=== PATIENT | female | born 1940 | race Caucasian/White ===

== ENCOUNTER → 2022-06-02 09:57 | Outpatient (CLI) | payer MEDICARE, OTHER, SELFPAY ==
--- NOTE | 2022-06-02 09:58 | DI.ECHO.S_ITS ---
[facility] +---------+ : : [address] : : : : [id number] : : : : Phone: [phone]+ Echocardiogram Report + + :Name: CHARITO HERRERA V Study Date: 06/02/2022 Height: 61 in : :[facility] ReadingLocation: Weight: 144 lb : : Gender: Female BSA: 1.6 m2 : :: 1940 Age: 81 yrs BP: 162/94 mmHg: :Reason For Study: Hypertension : :Ordering Physician: MAGALY, : :RESHMA Performed By: Jordon Munoz : :Referring: RESHMA MCKENZIE : + + Interpretation Summary The ejection fraction is estimated to be 55-60%. There are no focal wall motion abnormalities. There is mild mitral regurgitation. There is mild aortic valve sclerosis. There is mild tricuspid regurgitation. The right ventricular systolic pressure is estimated to be at least 24 mmHg based on an estimated right atrial pressure of 3 mm Hg. Procedure: A two-dimensional transthoracic echocardiogram with color flow and Doppler was performed. The study quality was technically adequate. There is no prior echocardiogram noted for this patient. The patient was in normal sinus rhythm during the exam. Left Ventricle: The left ventricle is normal in size and wall thickness. Left ventricular systolic function is normal. The ejection fraction is estimated to be 55-60%. There are no focal wall motion abnormalities. Diastolic parameters suggest probable normal left ventricular diastolic function and normal filling pressures. Right Ventricle: The right ventricle is normal in size and function. Atria: Both atria are normal in size. The interatrial septum grossly appears intact with no obvious evidence for an atrial septal defect. Mitral Valve: There is mild to moderate mitral annular calcification. There is mild mitral regurgitation. Aortic Valve: There is mild aortic valve sclerosis. No aortic regurgitation is present. Tricuspid Valve: The tricuspid valve is normal in structure and function. There is mild tricuspid regurgitation. The right ventricular systolic pressure is estimated to be at least 24 mmHg based on an estimated right atrial pressure of 3 mm Hg. Pulmonic Valve: The pulmonic valve is normal in structure and function. There is mild pulmonic regurgitation. Great Vessels: The aortic root is normal size. The ascending aorta is mildly enlarged. The IVC is of normal diameter and collapses greater than 50% with a sniff. This suggests a low right atrial pressure of 3 mm Hg. Pericardium/ Pleura There is no pericardial effusion. There is no pleural effusion. MMode/2D Measurements & Calculations LVIDd: 4.2 cm LVOT diam: 2.0 cm LVIDs: 2.9 cm Ao root diam: 3.0 cm FS: 31.0 % asc Aorta Diam: 3.8 cm IVSd: 0.60 cm LVPWd: 0.80 cm LV kimball. diameter/BSA (cm/m^2): 2.6 LV sys. diameter/BSA (cm/m^2): 1.8 LA dimension: 3.2 cm RA long axis: 4.7 cm LA A2 area: 8.9 cm2 RA area: 8.7 cm2 LA A4 area: 12.9 cm2 RA vol: 13.9 ml LA length (vol): 4.1 cm RA : 8.5 ml/m2 LA vol: 23.7 ml LA vol index: 14.4 ml/m2 TAPSE_phl: 1.8 cm Doppler Measurements & Calculations Ao V2 max: 102.0 cm/sec LVOT Max Griffin: 101.0 cm/sec Ao V2 mean: 82.3 cm/sec LV V1 max P.1 mmHg Ao max P.0 mmHg LV V1 VTI: 21.5 cm Ao mean P.0 mmHg JAS(I,D): 2.8 cm2 Ao V2 VTI: 24.1 cm JAS(V,D): 3.1 cm2 sev ratio: 0.89 JAS indexed to BSA (cm^2/m^2): 1.7 MV E max griffin: 86.5 cm/sec TR max griffin: 229.0 cm/sec MV A max griffin: 126.0 cm/sec TR max P.0 mmHg MV E/A: 0.69 Med Peak E' Griffin: 5.0 cm/sec E/E' med: 17.2 Lat Peak E' Griffin: 8.3 cm/sec E/E' lat: 10.4 E/e' average: 13.8 MV dec time: 0.22 sec SV(LVOT): 67.5 ml AV VR_phl: 0.99 MV P1/2t-pr_phl: 65.0 msec Reading Physician:03:39 PM
== END ==
PROVIDERS: Family Provider Internal Medicine; PCP Nurse Practitioner; Referring Provider Nurse Practitioner; Visit Provider Nurse Practitioner
DX: I65.22 Occlusion and stenosis of left carotid artery (principal); I08.3 Combined rheumatic disorders of mitral, aortic and tricuspid valves; I77.89 Other specified disorders of arteries and arterioles; I10 Essential (primary) hypertension; E11.69 Type 2 diabetes mellitus with other specified complication; E78.5 Hyperlipidemia, unspecified
CPT/HCPCS: 93005; 93010; 93306

== ENCOUNTER → 2022-10-07 08:00 | Outpatient (CLI) | payer MEDICARE, OTHER, SELFPAY ==
--- NOTE | 2022-10-07 08:03 | DI.US.S_ITS ---
PROCEDURE: US PELVIC COMPLETE INDICATIONS: vaginal bleed TECHNIQUE: Real-time scanning was performed of the pelvic organs, with image documentation. Additional endovaginal scanning was necessary due to incomplete visualization of the adnexal and endometrial structures by transabdominal scanning. COMPARISON: None. FINDINGS: Uterus: Uterus is anteverted and normal in size at 4.4 x 3.4 x 2.2 cm. The myometrium is heterogeneous with foci of calcification. The endometrium measures 2.9 mm combined thickness. There is a trace of endometrial fluid. Ovaries: Not visualized. Other: No pathologic free abdominal or pelvic fluid. There is a 2.0 x 2.5 x 1.4 cm oval-shaped structure with central lucency anterior superior to uterus. IMPRESSION: 1. Atrophic uterus. There is a trace of endometrial fluid. In the postmenopausal woman, this finding is abnormal. Recommend gynecological consultation. 2. Ovaries are not visualized. 3. A 2.0 x 2.5 x 1.4 cm oval-shaped structure with central lucency anterior superior to uterus. There is no vascularity on Doppler ultrasound. The clinical significance of the finding is uncertain. If clinically indicated, pelvic CT would be helpful. We strive to produce accurate, complete, and clear reports of imaging services. To assist us in improving patient care, this report was composed using standard report templates and voice recognition software. Therefore, it may contain abnormal punctuation, insertions and/or omissions. Occasional wrong-word or sound-alike substitutions may occur. Though we review the report and make efforts to correct it, we do recommend that the report be read carefully in proper context to recognize any text inaccuracies. Dictated by: Anupama Nieves M.D. on 10/07/2022 at 10:49 Approved by: Anupama Nieves M.D. on 10/07/2022 at 10:57
[2022-10-07 09:16] LABS: Hematocrit 35.2 % (36-46); Hemoglobin 12.1 g/dL (12.0-16.0); Mean Corpuscular HGB Conc 34.4 % (30-36); Mean Corpuscular Hemoglobin 31.8 PG (26-34); Mean Corpuscular Volume 92.4 fL (80-100); Platelet Count 217 X10^3/uL (150-400); Red Blood Cell Count 3.81 X10^6/uL (4.0-5.2); Red Cell Distribution Width 12.9 % (11.6-14.8); White Blood Cell Count 6.1 X10^3/uL (4.5-11.0)
[2022-10-07 09:17] LABS: Hemoglobin A1C% w Est Avg Glu 6.5 % (4.0-6.0)
[2022-10-07 09:42] LABS: Alanine Aminotransferase 17 IU/L (<35); Albumin 3.8 g/dL (3.5-5.0); Albumin Globulin Ratio 1.4 (1.0-2.8); Alkaline Phosphatase 75 U/L (38-126); Aspartate Aminotransferase 25 IU/L (14-36); BUN Creatinine Ratio 11.4 (6-22); Bilirubin Total 0.4 mg/dL (0.2-1.3); Blood Urea Nitrogen 12 mg/dL (7-17); Calcium 9.6 mg/dL (8.4-10.2); Carbon Dioxide 29 mmol/L (22-32); Chloride 103 mmol/L (98-107); Cholesterol 149 mg/dL (140-199); Estimated Glomerular Filt Rate 54 mL/min (>60); Globulin 2.8 g/dL (1.7-4.1); Glucose 123 mg/dL (80-110); HDL Cholesterol 77 mg/dL (40-60); HEMOLYSIS < 15 (0-50); LDL Cholesterol Calculated 53 mg/dL (<100); Sodium 140 mmol/L (137-145); Total Protein 6.6 g/dL (6.3-8.2); Triglycerides 94 mg/dL (35-150)
[2022-10-07 09:43] LABS: Potassium 6.1 mmol/L (3.4-5.1)
[2022-10-07 18:16] LABS: Magnesium 1.3 mg/dL (1.6-2.3)
== END ==
PROVIDERS: Family Provider Internal Medicine; PCP Nurse Practitioner; Referring Provider Nurse Practitioner Family; Visit Provider Nurse Practitioner Family
DX: N93.9 Abnormal uterine and vaginal bleeding, unspecified (principal); N85.8 Other specified noninflammatory disorders of uterus; R10.2 Pelvic and perineal pain; E11.69 Type 2 diabetes mellitus with other specified complication; E78.2 Mixed hyperlipidemia; I10 Essential (primary) hypertension; D64.9 Anemia, unspecified; E87.5 Hyperkalemia; Z79.899 Other long term (current) drug therapy
CPT/HCPCS: 36415; 76830; 76856; 80053; 80061; 83036; 83735; 85027

== ENCOUNTER → 2022-10-20 08:13 | Outpatient (CLI) | payer MEDICARE, OTHER, SELFPAY ==
--- NOTE | 2022-10-20 08:14 | DI.CT.S_ITS ---
PROCEDURE: CT ABDOMEN PELVIS W CON INDICATIONS: ABNORMAL US R/O MALIGNANCY TECHNIQUE: After the administration of oral and intravenous contrast, axial sections were acquired from the lung bases to the pubic symphysis. Coronal and sagittal reformats were performed. For radiation dose reduction, the following was used: automated exposure control, adjustment of mA and/or kV according to patient size. COMPARISON:[facility], US, US PELVIC COMPLETE, 10/07/2022, 8:12. FINDINGS: Image quality: Excellent. Lung bases: Unremarkable. Heart: No significant findings. ABDOMEN: Liver: Unremarkable. Gallbladder: Patient is status post cholecystectomy. Biliary ducts: Unremarkable. Pancreas: Unremarkable. Spleen: Unremarkable. Adrenal Glands: Unremarkable. Kidneys and Ureters: Unremarkable. Stomach and Bowel: Stomach, small bowel loops, and colon are unremarkable other than some increased stool noted throughout the patient's colon. There is a small to moderate size hiatal hernia present. The appendix is visualized and appears normal. Peritoneum: No abnormal intraperitoneal fluid. No free air. Ventral Wall: No hernia. Abdominal Nodes: No retroperitoneal or mesenteric adenopathy by size criteria. Vessels: Aorta and inferior vena cava are normal in size. PELVIS: Pelvic Organs: There is a thickened endometrium at 1.7 centimeters. I do not see evidence for a focal mass lesion in the pelvis. Bladder: Unremarkable. Pelvic Nodes: No enlarged lymph nodes. Miscellaneous: No inguinal hernias are seen. Bones: Patient is status post right total hip prosthesis which does somewhat technically limit evaluation of the pelvis secondary to metallic streak artifact. IMPRESSION: 1. Thickened endometrium at 1.7 centimeters. 2. No focal mass lesion identified within the pelvis. 3. Status post right total hip prosthesis. 4. Moderate increased stool throughout the patient's colon. 5. Atherosclerotic calcifications. 6. Small to moderate size hiatal hernia. 7. Status post cholecystectomy. 8. No evidence for acute intra-abdominal process seen. Dictated by: Obinna Oneal M.D. on 10/20/2022 at 12:56 Approved by: Obinna Oneal M.D. on 10/20/2022 at 13:08
== END ==
PROVIDERS: Family Provider Internal Medicine; PCP Nurse Practitioner; Referring Provider Nurse Practitioner; Visit Provider Nurse Practitioner
DX: R93.89 Abnormal findings on diagnostic imaging of other specified body structures (principal); K44.9 Diaphragmatic hernia without obstruction or gangrene; R10.9 Unspecified abdominal pain; Z90.49 Acquired absence of other specified parts of digestive tract; Z96.641 Presence of right artificial hip joint
CPT/HCPCS: 74177; Q9967

== ENCOUNTER → 2023-04-11 16:05 | Outpatient (CLI) | payer MEDICARE, OTHER, SELFPAY ==
[2023-04-11 18:40] LABS: Appearance Urine UA CLEAR; Bilirubin Urine UA NEGATIVE (NEGATIVE); Color Urine UA YELLOW; Glucose Urine UA NEGATIVE (Negative); Ketones Urine UA TRACE (NEGATIVE); Leukocyte Esterase Urine UA NEGATIVE (NEGATIVE); Nitrite Urine UA NEGATIVE (Negative); Occult Blood Urine UA NEGATIVE (Negative); Protein Urine UA TRACE (Negative); Specific Gravity Urine UA 1.025 (1.000-1.035); Urobilinogen Urine UA 0.2 E.U./dL (0.2)
[2023-04-11 18:44] LABS: Bacteria Urine None Seen; Culture Indicated Urine Cult Not Indicated; RBC Urine None Seen (0-5/HPF); Squamous Epithelial Cell Urine None Seen (0-5/HPF); Urine Comments Microscopic Normal; WBC Urine None Seen (0-5/HPF)
== END ==
PROVIDERS: Family Provider Internal Medicine; PCP Nurse Practitioner; Visit Provider Family Medicine
DX: N18.9 Chronic kidney disease, unspecified (principal)
CPT/HCPCS: 81001

== ENCOUNTER → 2023-08-14 10:49 | Outpatient (CLI) | payer MEDICARE, OTHER, SELFPAY ==
[2023-08-14 12:11] LABS: Urine Volume 10mL (spun)
[2023-08-14 12:41] LABS: Hematocrit 36.3 % (36-46); Mean Corpuscular HGB Conc 33.2 % (30-36); Mean Corpuscular Hemoglobin 30.5 PG (26-34); Mean Corpuscular Volume 91.9 fL (80-100); Platelet Count 260 X10^3/uL (150-400); Red Blood Cell Count 3.95 X10^6/uL (4.0-5.2); Red Cell Distribution Width 12.9 % (11.6-14.8); White Blood Cell Count 5.5 X10^3/uL (4.5-11.0)
[2023-08-14 13:13] LABS: Appearance Urine UA CLEAR; Bilirubin Urine UA NEGATIVE (NEGATIVE); Color Urine UA YELLOW; Glucose Urine UA NEGATIVE (Negative); Ketones Urine UA NEGATIVE (NEGATIVE); Leukocyte Esterase Urine UA NEGATIVE (NEGATIVE); Nitrite Urine UA NEGATIVE (Negative); Occult Blood Urine UA NEGATIVE (Negative); Protein Urine UA NEGATIVE (Negative); Urobilinogen Urine UA 0.2 E.U./dL (0.2)
[2023-08-14 13:21] LABS: Bacteria Urine None Seen; Culture Indicated Urine Cult Not Indicated; Hyaline Casts Urine 1-5/LPF; RBC Urine None Seen (0-5/HPF); Squamous Epithelial Cell Urine 0-1 /HPF (0-5/HPF); WBC Urine None Seen (0-5/HPF)
[2023-08-14 13:33] LABS: Alanine Aminotransferase 15 IU/L (<35); Albumin 4.3 g/dL (3.5-5.0); Albumin Globulin Ratio 1.3 (1.0-2.8); Alkaline Phosphatase 87 U/L (38-126); Aspartate Aminotransferase 24 IU/L (14-36); Bilirubin Total 0.5 mg/dL (0.2-1.3); Blood Urea Nitrogen 12 mg/dL (7-17); Calcium 9.9 mg/dL (8.4-10.2); Carbon Dioxide 26 mmol/L (22-32); Chloride 104 mmol/L (98-107); Cholesterol 219 mg/dL (140-199); Estimated Glomerular Filt Rate 51 mL/min (>60); Globulin 3.3 g/dL (1.7-4.1); Glucose 127 mg/dL (80-110); HDL Cholesterol 65 mg/dL (40-60); HEMOLYSIS < 15 (0-50); LDL Cholesterol Calculated 137 mg/dL (<100); Potassium 4.3 mmol/L (3.4-5.1); Sodium 140 mmol/L (137-145); Total Protein 7.6 g/dL (6.3-8.2); Triglycerides 83 mg/dL (35-150)
[2023-08-14 13:47] LABS: TSH w/ Reflex to FT4 1.53 uIU/mL (0.47-4.68)
[2023-08-14 14:07] LABS: Ferritin 29 ng/mL (11-264)
[2023-08-14 14:22] LABS: Vitamin B12 528 pg/mL (239-931)
[2023-08-14 14:40] LABS: Creatinine Urine Random 147.5 mg/dL
[2023-08-14 14:44] LABS: Microalbumi Creatinin Ratio Ur 26.4 ug/mg CR (<30); Microalbumin Urine Random 3.9 mg/dL (0-1.6)
[2023-08-14 14:48] LABS: Hemoglobin A1C% w Est Avg Glu 6.6 % (4.0-6.0)
== END ==
PROVIDERS: Family Provider Internal Medicine; PCP Internal Medicine; Referring Provider Internal Medicine; Visit Provider Internal Medicine
DX: E11.319 Type 2 diabetes mellitus with unspecified diabetic retinopathy without macular edema (principal); E78.2 Mixed hyperlipidemia; D64.9 Anemia, unspecified; E11.21 Type 2 diabetes mellitus with diabetic nephropathy; E53.8 Deficiency of other specified B group vitamins; N30.00 Acute cystitis without hematuria
CPT/HCPCS: 36415; 80053; 80061; 81001; 82043; 82570; 82607; 82728; 83036; 84443; 85027

== ENCOUNTER → 2023-08-29 11:39 | Outpatient (CLI) | payer MEDICARE, OTHER, SELFPAY ==
--- NOTE | 2023-08-29 11:59 | DI.DEXA.S_ITS ---
Bone Density Report Name: CHARITO HERRERA V Age: 82 Sex: Female Ethnicity: White Date of : 1940 Indication: postmenopausal; screening for osteoporosis; Referring Provider: EMELY LAM Study: Bone densitometry was performed. Exam Date: August 29, 2023 Accession number: [id number] Bone Density: Region BMD T-score Z-score Classification AP Spine(L2, L3) 1.190 1.2 4.0 Normal Femoral Neck (Left) 0.450 -3.6 -1.2 Osteoporosis Total Hip (Left) 0.698 -2.0 0.2 Osteopenia Total Forearm (Left) 0.505 -1.4 1.8 Osteopenia 1/3 Forearm (Left) 0.607 -1.4 1.9 Osteopenia UD Forearm (Left) 0.477 0.6 3.0 Normal World Health Organization criteria for BMD impression classify patients as: Normal (T-score at or above -1.0), Osteopenia (T-score between -1.0 and -2.5), or Osteoporosis (T-score at or below -2.5). 10-year Fracture Risk: FRAX not reported because: Some T-score for Spine Total or Hip Total or Femoral Neck at or below -2.5 Impression: The patient has osteoporosis, based on the Left Femoral Neck T-score. Discussion: INCREASED RISK OF FRACTURE. BONE DENSITY IS UNDESIRABLY LOW AT ONE OR MORE SKELETAL SITES, CONSISTENT WITH POSTMENOPAUSAL OSTEOPOROSIS. This patient's lowest T-score meets the World Health Organization's (WHO) criteria for osteoporosis at one or more sites (T-score -2.5 or below). In untreated patients, the risk of osteoporotic fracture increases approximately two-fold for each 1.0 SD decrease in T-score. Low bone density is not the only risk factor for fracture; also consider factors such as patient's age, frailty or poor health, risk of falling, risk of injury, previous osteoporotic fracture, family history of osteoporosis, cigarette smoking, low body weight, etc. Not everyone with low bone mineral density has osteoporosis; osteomalacia and other metabolic bone disorders should also be considered. Patients who have osteoporosis should be evaluated for specific diseases and conditions (secondary causes) that may cause or contribute to bone loss. The [place] [employer]ocrinologists (AACE) and National Osteoporosis Foundation (NOF) recommend pharmacologic intervention for all postmenopausal women whose T-score is in this range. The patient should follow a healthful lifestyle (good nutrition with adequate calcium and vitamin D, and appropriate weight-bearing exercise). Follow-Up: Consider a repeat BMD and Vertebral Fracture Assessment (VFA) exam in 2 years or sooner if medically necessary, to reassess this patient's status. Reported by: DAVID QUINTERO M.D. on 08/29/2023 12:18:00 PM.
== END ==
LOC: RAD 11:39
PROVIDERS: Family Provider Internal Medicine; PCP Internal Medicine; Referring Provider Internal Medicine; Visit Provider Internal Medicine
DX: M81.0 Age-related osteoporosis without current pathological fracture (principal)
CPT/HCPCS: 77080; 77081

== ENCOUNTER → 2023-11-08 15:24 | Outpatient (CLI) | payer MEDICARE, OTHER, SELFPAY ==
[2023-11-08 16:36] LABS: Appearance Urine UA CLEAR; Bilirubin Urine UA NEGATIVE (NEGATIVE); Color Urine UA YELLOW; Glucose Urine UA NEGATIVE (Negative); Ketones Urine UA NEGATIVE (NEGATIVE); Leukocyte Esterase Urine UA NEGATIVE (NEGATIVE); Nitrite Urine UA NEGATIVE (Negative); Occult Blood Urine UA NEGATIVE (Negative); Protein Urine UA NEGATIVE (Negative); Specific Gravity Urine UA 1.025 (1.000-1.035); Urobilinogen Urine UA 0.2 E.U./dL (0.2)
[2023-11-08 16:52] LABS: Bacteria Urine Occasional (0-1); Culture Indicated Urine Cult Not Indicated; Mucus Urine 1+ (Negative); RBC Urine None Seen (0-5/HPF); Squamous Epithelial Cell Urine 0-1 /HPF (0-5/HPF); Urine Volume 10mL (spun); WBC Urine 0-1/HPF (0-5/HPF)
== END ==
PROVIDERS: Family Provider Internal Medicine; PCP Internal Medicine; Referring Provider Internal Medicine; Visit Provider Internal Medicine
DX: N30.00 Acute cystitis without hematuria (principal)
CPT/HCPCS: 81001

== ENCOUNTER → 2024-02-12 10:08 | Outpatient (CLI) | payer MEDICARE, OTHER, SELFPAY ==
[2024-02-12 11:46] LABS: Hemoglobin A1C% w Est Avg Glu 6.7 % (4.0-6.0)
[2024-02-12 12:01] LABS: BUN Creatinine Ratio 18.6 (6-22); Blood Urea Nitrogen 21 mg/dL (7-17); Calcium 9.6 mg/dL (8.4-10.2); Carbon Dioxide 22 mmol/L (22-32); Chloride 109 mmol/L (98-107); Estimated Glomerular Filt Rate 49 mL/min (>60); Glucose 129 mg/dL (80-110); HEMOLYSIS < 15 (0-50); Sodium 138 mmol/L (137-145)
[2024-02-12 12:02] LABS: Potassium 5.6 mmol/L (3.4-5.1)
== END ==
PROVIDERS: Family Provider Internal Medicine; PCP Internal Medicine; Referring Provider Internal Medicine; Visit Provider Internal Medicine
DX: E11.319 Type 2 diabetes mellitus with unspecified diabetic retinopathy without macular edema (principal)
CPT/HCPCS: 36415; 80048; 83036

== ENCOUNTER → 2024-05-10 10:56 | Outpatient (CLI) | payer MEDICARE, OTHER, SELFPAY ==
[2024-05-10 12:27] LABS: Hematocrit 35.9 % (36-46); Mean Corpuscular HGB Conc 33.6 % (30-36); Mean Corpuscular Hemoglobin 30.9 PG (26-34); Mean Corpuscular Volume 92.1 fL (80-100); Platelet Count 235 X10^3/uL (150-400); Red Blood Cell Count 3.89 X10^6/uL (4.0-5.2); Red Cell Distribution Width 13.9 % (11.6-14.8); White Blood Cell Count 5.7 X10^3/uL (4.5-11.0)
[2024-05-10 12:46] LABS: Hemoglobin A1C% w Est Avg Glu 6.5 % (4.0-6.0)
[2024-05-10 12:55] LABS: BUN Creatinine Ratio 15.9 (6-22); Blood Urea Nitrogen 18 mg/dL (7-17); C-Reactive Protein Quant < 0.5 mg/dL (<1.0); Calcium 9.5 mg/dL (8.4-10.2); Carbon Dioxide 27 mmol/L (22-32); Chloride 102 mmol/L (98-107); Cholesterol 233 mg/dL (140-199); Estimated Glomerular Filt Rate 49 mL/min (>60); Glucose 114 mg/dL (80-110); HDL Cholesterol 64 mg/dL (40-60); HEMOLYSIS < 15 (0-50); LDL Cholesterol Calculated 154 mg/dL (<100); Sodium 136 mmol/L (137-145); Triglycerides 76 mg/dL (35-150)
[2024-05-10 13:44] LABS: Erythrocyte Sedimentation Rate 38 MM/HR (0-20)
== END ==
PROVIDERS: Family Provider Internal Medicine; PCP Internal Medicine; Referring Provider Internal Medicine; Visit Provider Internal Medicine
DX: E11.319 Type 2 diabetes mellitus with unspecified diabetic retinopathy without macular edema (principal); B99.9 Unspecified infectious disease; U07.1 COVID-19; E78.2 Mixed hyperlipidemia; I10 Essential (primary) hypertension
CPT/HCPCS: 36415; 80048; 80061; 83036; 85027; 85651; 86140

== ENCOUNTER 2024-07-29 11:53 | Emergency (ER) | payer MEDICARE, OTHER, SELFPAY ==
[2024-07-29 12:02] VITALS: BP 196/91; PULSE 87; RESP 16; TEMP 36.6; O2SAT 97; BMI 26.5
--- NOTE | 2024-07-29 12:05 | DI.RAD.S_ITS ---
PROCEDURE: XR ANKLE RT MIN 3V INDICATIONS: fall/rolled on [place]. increasing pain/swelling TECHNIQUE: 3 views of the ankle were acquired. COMPARISON: None. FINDINGS: Bones: No fractures or dislocations. Ankle mortise is normally aligned. No suspicious bony lesions. Soft tissues: No tibiotalar joint effusion. Achilles tendon appears normal. Atherosclerotic vascular calcifications. IMPRESSION: No acute osseous abnormality. If pain persists with conservative management, consider repeat x-ray in 10-14 days or cross-sectional imaging. Dictated by: Julio Cesar Guillory M.D. on 07/29/2024 at 12:53 Approved by: Julio Cesar Guillory M.D. on 07/29/2024 at 12:54
--- NOTE | 2024-07-29 13:59 | ED.LOWEXIN ---
HPI - Extremity Injury (Lower) <Lorna Cheema PA-C - Last Filed: 07/29/24 14:03> General Chief Complaint: Extremity Injury, Lower Stated Complaint: Right ankle pain Time Seen by Provider: 07/29/24 12:39 History of Present Illness HPI Narrative: 83-year-old female presents to the ED with right ankle pain which she injured on [address] [place]. Patient states that she twisted her right ankle when she was trying to break a fall. No other injuries. Patient states that she has pain and swelling in the lateral aspect of the right ankle. No numbness, tingling, weakness. Patient has been trying to take some Tylenol, apply heat, keep her feet up. Patient did try using an Jourdan wrap, which she states caused her ankle to be more painful and swollen. Related Data Home Medications Medication Instructions Recorded Confirmed fluconazole 50 mg tablet 50 mg PO DAILY 09/26/18 05/15/24 folic acid 400 mcg tablet 0.4 mg PO DAILY 09/26/18 05/15/24 lysine 1,000 mg tablet 1,000 mg PO DAILY 09/26/18 05/15/24 mecobalamin (vitamin B12) 1,000 1,000 mcg sublingual DAILY 04/12/22 05/15/24 mcg disintegrating tablet,sublingual pyridoxine (vitamin B6) 1 tab PO DAILY 11/08/23 05/15/24 Previous Rx's Medication Instructions Recorded clobetasol 0.05 % topical ointment 1 applic topical QAM AND QPM PRN 07/26/22 perineal itching #30 grams lidocaine 5 % topical patch 1 patch topical DAILY #90 ea 07/26/22 magnesium oxide 400 mg PO DAILY #90 caps 10/18/22 lisinopril 10 mg tablet 10 mg PO DAILY #90 tabs 08/14/23 rosuvastatin 20 mg tablet (Crestor) 20 mg PO DAILY #90 tabs 08/14/23 metformin 500 mg tablet,extended See Rx Instructions PO BID #270 02/14/24 release 24 hr tabs Accucheck Glucometer Test Strips #100 ea 05/15/24 Parking Permit... #1 ea 05/15/24 omeprazole 20 mg capsule,delayed 20 mg PO DAILY #90 caps 05/15/24 release Allergies Allergy/AdvReac Type Severity Reaction Status Date / Time Sulfa (Sulfonamide Allergy Unknown Verified 05/15/24 11:25 Antibiotics) CODEINE Allergy Unknown Uncoded 05/15/24 11:25 Review of Systems <Lorna Cheema PA-C - Last Filed: 07/29/24 14:03> Constitutional Constitutional: Denies chills, Denies fatigue, Denies fever(s), Denies frequent falls, Denies lethargy and Denies weakness Eyes Eyes: Denies change in vision, Denies eye discharge, Denies irritation and Denies loss of vision ENT Ears, Nose, Mouth, and Throat: Denies change in voice, Denies dizziness, Denies neck pain, Denies sore throat and Denies throat swelling Cardiovascular Cardiovascular: Denies chest pain, Denies irregular heart rhythm, Denies lightheadedness, Denies palpitations, Denies dyspnea, Denies dyspnea on exertion and Denies orthopnea Respiratory Respiratory: Denies cough, Denies dyspnea, Denies dyspnea on exertion and Denies wheezing Gastrointestinal Gastrointestinal: Denies abdominal pain, Denies change in bowel habits, Denies diarrhea, Denies nausea and Denies vomiting Musculoskeletal Musculoskeletal: Denies neck pain and Denies numbness Comments: Right ankle swelling, pain Integumentary/Breasts Skin/Breast: Denies pruritus, Denies erythema, Denies rash and Denies wounds Neurologic Neurologic: Denies behavioral changes, Denies confusion, Denies dizziness, Denies frequent falls, Denies loss of vision, Denies numbness and Denies weakness Psychiatric Psychiatric: Denies anxiety, Denies behavioral changes, Denies confusion, Denies depression, Denies homicidal ideation and Denies suicidal ideation Endocrine Endocrine: Denies fatigue, Denies flushing and Denies palpitations Hematologic/Lymphatic Hematologic/Lymphatic: Denies easy bruising Allergic/Immunologic Allergic/Immunologic: Denies urticaria, Denies throat swelling and Denies wheezing Patient History <Lorna Cheema PA-C - Last Filed: 07/29/24 14:03> Medical History (Updated 07/29/24 @ 13:40 by Lorna Cheema PA-C) Stage 3a chronic kidney disease (CKD) Age-related osteoporosis without current pathological fracture Do not resuscitate Gait instability Anemia History of carotid stenosis Mixed hyperlipidemia Essential hypertension Pes planus of both feet Neuropathy, diabetic Peripheral vascular disease Microalbuminuric diabetic nephropathy Diabetic retinopathy associated with controlled type 2 diabetes mellitus Rheumatic fever Vertigo Injury of left ear Left ear hearing loss GERD (gastroesophageal reflux disease) Hx of cataract UTI (urinary tract infection) Tish osteomyelitis, acute Osteopenia Arthritis Surgical History History of left-sided carotid endarterectomy History of hip surgery Hx of cholecystectomy History of tonsillectomy Family History Family/Other Cancer Father History of heart disease Mother History of aspiration pneumonia Grandfather Stroke Social History marital status: unmarried,single household members: none Smoking Status: Never smoker alcohol intake: never substance use type: does not use Smoking Status: Never smoker Exam <Lorna Cheema PA-C - Last Filed: 07/29/24 14:03> Narrative Exam Narrative: Const General:?cooperative, healthy appearing and comfortable HENMT Head:?normal to inspection Ears:?hearing grossly normal bilaterally Nose:?external nose normal Face and sinus:?normal facial exam and sinuses nontender Mouth:?oral mucosae normal Throat:?posterior oropharynx normal Eyes General:?appearance normal, both eyes and all related structures Neck Neck:?normal visual inspection and no lymphadenopathy noted Resp Effort & Inspection:?normal respiratory effort Auscultation:?clear to auscultation bilaterally Cardio Rate:?regular rate Rhythm:?regular rhythm Musculoskeletal Lateral aspect of right ankle is slightly swollen, tender to touch. No bruising. No tenderness to palpation of the right foot. Strength and sensation is intact. Full range of motion. Patient is neurovascularly intact. Neuro General:?patient alert, patient awake and patient oriented x3 Initial Vital Signs Initial Vital Signs: Vital Signs Temperature 97.8 F 07/29/24 12:02 Pulse Rate 87 07/29/24 12:02 Respiratory Rate 16 07/29/24 12:02 Blood Pressure 196/91 H 07/29/24 12:02 Pulse Oximetry 97 07/29/24 12:02 Oxygen Delivery Method Room Air 07/29/24 12:02 <Kendra Alvarado DO - Last Filed: 07/29/24 18:59> Initial Vital Signs Initial Vital Signs: Vital Signs Temperature 97.8 F 07/29/24 12:02 Pulse Rate 87 07/29/24 12:02 Respiratory Rate 16 07/29/24 12:02 Blood Pressure 196/91 H 07/29/24 12:02 Pulse Oximetry 97 07/29/24 12:02 Oxygen Delivery Method Room Air 07/29/24 12:02 Course <Lorna Cheema PA-C - Last Filed: 07/29/24 14:03> Orders Ordered: ED Orders 07/29/24 12:05 XR ankle RT min 3V Stat Vital Signs Vital signs: Vital Signs - 8 hr 07/29/24 12:02 Temperature 97.8 F Pulse Rate 87 Respiratory Rate 16 Blood Pressure 196/91 H Pulse Oximetry 97 Oxygen Delivery Method Room Air <Kendra Alvarado DO - Last Filed: 07/29/24 18:59> Orders Ordered: ED Orders 07/29/24 12:05 XR ankle RT min 3V Stat Vital Signs Vital signs: Vital Signs - 8 hr 07/29/24 12:02 Temperature 97.8 F Pulse Rate 87 Respiratory Rate 16 Blood Pressure 196/91 H Pulse Oximetry 97 Oxygen Delivery Method Room Air MDM - Extremity Injury (Lower) <Lorna Cheema PA-C - Last Filed: 07/29/24 14:03> MDM Narrative Medical decision making narrative: 83-year-old female presents to the ED with right ankle pain which she injured [place] [address] [place]. Concern for fracture/dislocation versus musculoskeletal sprain/strain versus other. Obtained x-ray which was without acute findings. Discussed with patient that her symptoms are most likely due to a musculoskeletal sprain/strain of the ankle. Recommend continuing ice Tylenol, heat packs, elevation above heart level, rest. Recommend follow-up with PCP as soon as possible. ED return precautions discussed with patient. Patient verbalized understanding. Medical records reviewed: Yes Discharge Plan Departure Patient Disposition: Home Clinical Impression: Right ankle sprain Qualifiers: Encounter type: initial encounter Involved ligament of ankle: unspecified ligament Qualified Code(s): S93.401A - Sprain of unspecified ligament of right ankle, initial encounter Instructions: DI for Ankle Sprain Activity Restrictions/Additional Instructions: You were evaluated in the ED today for an ankle injury. Your x-rays did not show any fractures or dislocations. It appears that your symptoms are due to a musculoskeletal sprain/strain with a pulled muscle or ligament. Please continue to take Tylenol, apply heat, elevate your foot above heart level and rest your ankle. Please follow-up with your PCP as soon as possible. Return to the ED if you have worsening symptoms, numbness, tingling, weakness. Prescriptions: No Action mecobalamin (vitamin B12) 1,000 mcg tablet,disintegrating 1,000 mcg sublingual DAILY Rx Instructions: place tablet under tongue and allow to dissolve for at least30 secs before swallowing clobetasol 0.05 % ointment 1 applic topical QAM AND QPM PRN (Reason: perineal itching) Qty: 30 3RF Rx Instructions: Apply pea sized dollop to affected area twice daily as needed. lidocaine 5 % adhesive patch,medicated 1 patch topical DAILY Qty: 90 3RF Rx Instructions: leave on most painful area for up to 12 hrs magnesium oxide 400 mg magnesium capsule 400 mg PO DAILY Qty: 90 1RF Rx Instructions: Take 1 capsule by mouth daily lisinopril 10 mg tablet 10 mg PO DAILY Qty: 90 3RF Rx Instructions: Take 1 tab at bedtime daily for hypertension rosuvastatin [Crestor] 20 mg tablet 20 mg PO DAILY Qty: 90 3RF Rx Instructions: Take 1 tab at bedtime daily pyridoxine (vitamin B6) 1 tab PO DAILY metformin 500 mg tablet extended release 24 hr See Rx Instructions PO BID Qty: 270 3RF Rx Instructions: 1000mg morning, 500mg evening (DME) Parking Permit... See Rx Instructions .Route .MEDSUPPLY Qty: 1 0RF Rx Instructions: As directed (DME) Accucheck Glucometer Test Strips See Rx Instructions .Route .MEDSUPPLY Qty: 100 3RF Rx Instructions: Take blood sugars 1-2 times per day, max 2 times per day for diabetes omeprazole 20 mg capsule,delayed release(DR/EC) 20 mg PO DAILY Qty: 90 3RF Rx Instructions: Take 1 capsule daily for GERD lysine 1,000 mg tablet 1,000 mg PO DAILY folic acid 400 mcg tablet 0.4 mg PO DAILY fluconazole 50 mg tablet 50 mg PO DAILY Referrals: Rajesh Cabrera MD [Primary Care Provider] - Stand Alone Forms: Patient Portal/API/Survey ED Sign-out <Kendra Alvarado DO - Last Filed: 07/29/24 18:59> Cosign ED Attending Cosignature Attestation: I was immediately available in the department for consultation.
== END 2024-07-29 13:53 | disposition home or self-care (01) ==
PROVIDERS: Emergency Provider Student in an Organized Health Care Education/Training Program; Family Provider Internal Medicine; PCP Internal Medicine
DX: S93.401A Sprain of unspecified ligament of right ankle, initial encounter (principal); X50.1XXA Overexertion from prolonged static or awkward postures, initial encounter
CPT/HCPCS: 73610; 99281; 99283

== ENCOUNTER → 2024-08-02 08:23 | Outpatient (CLI) | payer MEDICARE, OTHER, SELFPAY ==
[2024-08-02 08:44] LABS: Hematocrit 34.7 % (36-46); Hemoglobin 11.7 g/dL (12.0-16.0); Mean Corpuscular HGB Conc 33.7 % (30-36); Mean Corpuscular Hemoglobin 31.3 PG (26-34); Mean Corpuscular Volume 92.8 fL (80-100); Platelet Count 302 X10^3/uL (150-400); Red Blood Cell Count 3.74 X10^6/uL (4.0-5.2); Red Cell Distribution Width 13.6 % (11.6-14.8); White Blood Cell Count 6.2 X10^3/uL (4.5-11.0)
[2024-08-02 08:55] LABS: Hemoglobin A1C% w Est Avg Glu 6.2 % (4.0-6.0)
[2024-08-02 09:05] LABS: Alanine Aminotransferase 19 IU/L (<35); Albumin 4.1 g/dL (3.5-5.0); Albumin Globulin Ratio 1.6 (1.0-2.8); Alkaline Phosphatase 70 U/L (38-126); Aspartate Aminotransferase 30 IU/L (14-36); BUN Creatinine Ratio 13.4 (6-22); Bilirubin Total 0.3 mg/dL (0.2-1.3); Blood Urea Nitrogen 15 mg/dL (7-17); C-Reactive Protein Quant < 0.5 mg/dL (<1.0); Calcium 9.9 mg/dL (8.4-10.2); Carbon Dioxide 28 mmol/L (22-32); Chloride 104 mmol/L (98-107); Estimated Glomerular Filt Rate 49 mL/min (>60); Globulin 2.5 g/dL (1.7-4.1); Glucose 132 mg/dL (80-110); HEMOLYSIS < 15 (0-50); Potassium 5.1 mmol/L (3.4-5.1); Sodium 139 mmol/L (137-145); Total Protein 6.6 g/dL (6.3-8.2)
[2024-08-02 09:31] LABS: Creatinine Urine Random 170.73 mg/dL
[2024-08-02 09:36] LABS: Microalbumin Urine Random 3.3 mg/dL (0-1.6)
[2024-08-02 12:31] LABS: Erythrocyte Sedimentation Rate 52 MM/HR (0-20)
== END ==
PROVIDERS: Family Provider Internal Medicine; PCP Internal Medicine; Referring Provider Internal Medicine; Visit Provider Internal Medicine
DX: N18.31 Chronic kidney disease, stage 3a (principal); E11.319 Type 2 diabetes mellitus with unspecified diabetic retinopathy without macular edema; B37.89 Other sites of candidiasis; M86.10 Other acute osteomyelitis, unspecified site
CPT/HCPCS: 36415; 80053; 82043; 82570; 83036; 85027; 85651; 86140

== ENCOUNTER → 2024-10-31 09:33 | Outpatient (CLI) | payer MEDICARE, OTHER, SELFPAY ==
[2024-10-31 10:14] LABS: Hematocrit 34.9 % (36-46); Hemoglobin 11.8 g/dL (12.0-16.0); Mean Corpuscular HGB Conc 33.8 % (30-36); Mean Corpuscular Hemoglobin 31.2 PG (26-34); Mean Corpuscular Volume 92.3 fL (80-100); Platelet Count 224 X10^3/uL (150-400); Red Blood Cell Count 3.78 X10^6/uL (4.0-5.2); Red Cell Distribution Width 13.7 % (11.6-14.8); White Blood Cell Count 5.4 X10^3/uL (4.5-11.0)
[2024-10-31 10:26] LABS: Hemoglobin A1C% w Est Avg Glu 6.1 % (4.0-6.0)
[2024-10-31 10:43] LABS: Aspartate Aminotransferase 30 IU/L (14-36); BUN Creatinine Ratio 13.2 (6-22); Blood Urea Nitrogen 14 mg/dL (7-17); C-Reactive Protein Quant < 0.5 mg/dL (<1.0); Calcium 9.6 mg/dL (8.4-10.2); Carbon Dioxide 23 mmol/L (22-32); Chloride 102 mmol/L (98-107); Estimated Glomerular Filt Rate 52 mL/min (>60); Glucose 175 mg/dL (80-110); HEMOLYSIS < 15 (0-50); Magnesium 1.1 mg/dL (1.6-2.3); Sodium 137 mmol/L (137-145)
[2024-10-31 11:03] LABS: Erythrocyte Sedimentation Rate 33 MM/HR (0-20)
== END ==
PROVIDERS: Family Provider Internal Medicine; PCP Internal Medicine; Referring Provider Internal Medicine; Visit Provider Internal Medicine
DX: E11.319 Type 2 diabetes mellitus with unspecified diabetic retinopathy without macular edema (principal); N18.31 Chronic kidney disease, stage 3a; B37.89 Other sites of candidiasis; E83.42 Hypomagnesemia; M86.10 Other acute osteomyelitis, unspecified site
CPT/HCPCS: 36415; 80048; 83036; 83735; 84450; 85027; 85651; 86140

== ENCOUNTER → 2025-04-30 10:51 | Outpatient (CLI) | payer MEDICARE, OTHER, SELFPAY ==
[2025-04-30 11:22] LABS: Hemoglobin A1C% w Est Avg Glu 6.9 % (4.0-6.0)
[2025-04-30 11:35] LABS: Blood Urea Nitrogen 21 mg/dL (7-17); Calcium 9.8 mg/dL (8.4-10.2); Carbon Dioxide 24 mmol/L (22-32); Chloride 106 mmol/L (98-107); Cholesterol 173 mg/dL (140-199); Estimated Glomerular Filt Rate 49 mL/min (>60); Glucose 133 mg/dL (70-99); HDL Cholesterol 91 mg/dL (40-60); HEMOLYSIS < 15 (0-50); Sodium 139 mmol/L (137-145); Triglycerides 72 mg/dL (35-150)
[2025-04-30 11:46] LABS: Potassium 5.7 mmol/L (3.4-5.1)
== END ==
PROVIDERS: PCP Internal Medicine; Referring Provider Internal Medicine; Visit Provider Internal Medicine
DX: E11.319 Type 2 diabetes mellitus with unspecified diabetic retinopathy without macular edema (principal); E78.2 Mixed hyperlipidemia; N18.31 Chronic kidney disease, stage 3a
CPT/HCPCS: 36415; 80048; 80061; 83036; 84450

== ENCOUNTER → 2025-05-05 07:40 | Outpatient (CLI) | payer MEDICARE, OTHER, SELFPAY ==
[2025-05-05 08:08] LABS: HEMOLYSIS < 15 (0-50); Potassium 4.1 mmol/L (3.4-5.1)
== END ==
PROVIDERS: PCP Internal Medicine; Referring Provider Internal Medicine; Visit Provider Internal Medicine
DX: E87.5 Hyperkalemia (principal)
CPT/HCPCS: 36415; 84132

== ENCOUNTER → 2025-06-03 10:05 | Outpatient (CLI) | payer MEDICARE, OTHER, SELFPAY ==
--- NOTE | 2025-06-03 10:06 | DI.RAD.S_ITS ---
PROCEDURE: XR LUMBAR SPINE 2-3V
== END ==
PROVIDERS: PCP Internal Medicine; Referring Provider Internal Medicine; Visit Provider Internal Medicine
DX: M47.816 Spondylosis without myelopathy or radiculopathy, lumbar region (principal); M43.16 Spondylolisthesis, lumbar region; M48.07 Spinal stenosis, lumbosacral region; M54.50 Low back pain, unspecified; G89.29 Other chronic pain
CPT/HCPCS: 72100